=== PATIENT | male | born 1945 | race Caucasian/White ===

== ENCOUNTER 2016-08-27 13:53 | Emergency (ER) | payer OTHER ==
[~2016-08-27] VITALS: Ht 175.3 cm; Wt 50.0 kg
[~2016-08-27 13:53] MED LIST: ARIC23TA PO; ENAL10TA7 PO; ZOFR4TAB3 SL
[2016-08-27 13:57] VITALS: BP 145/65; PULSE 80; RESP 16; TEMP 98.5; O2SAT 98
[2016-08-27] MEDS ORDERED: ENAL10TA PO (14:27)
[2016-08-27] MEDS ORDERED: MIRTA15 PO (14:27)
[2016-08-27] MEDS ORDERED: MEMA1CAP4 PO (14:27)
[2016-08-27] MEDS ORDERED: LOVA40TA PO (14:27)
[2016-08-27] MEDS ORDERED: ASPI81TA11 PO (14:27)
--- NOTE | 2016-08-27 14:27 | PD ---
HPI Chief Complaint: Fall Time Seen by Provider: 14:09 Travel History International Travel<30 days: No Contact w/Intl Traveler<30days: No Traveled to known affect area: No History of Present Illness HPI 70-year-old man, history of dementia, presents to the emergency department after fall. Reportedly at about 3 AM last night he had a fall in the shower. He complains of pain on the right side of his chest. He had some bruising on his left arm. He lives with an uncle who helps take care of him. They called his brother today brought into the emergency department. History Past Medical History Narrative Medical Dementia Hypertension History of pancreatitis Tetanus Vaccination: Unknown Social History Alcohol Use: No Tobacco Use: No Allergies-Medications (Allergen,Severity, Reaction): Coded Allergies: Penicillin (Verified Allergy, Mild, RASH, 08/27/16) Reported Meds & Prescriptions Reported Meds & Active Scripts Active Reported Aspirin EC (Aspirin) 81 Mg Tabdr 81 Mg PO DAILY Namzaric (Memantine-Donepezil) 21-10 mg Cap 1 Cap PO HS Mirtazapine 15 Mg Tab 15 Mg PO HS Lovastatin 40 Mg Tab 40 Mg PO DAILY Enalapril (Enalapril Maleate) 10 Mg Tab 10 Mg PO DAILY Review of Systems Except as stated in HPI: all other systems reviewed are Neg Physical Exam Narrative GENERAL: Well-appearing 70-year-old man, no acute distress. SKIN: Focused skin assessment warm/dry. HEAD: Atraumatic. Normocephalic. EYES: Pupils equal and round. No scleral icterus. No injection or drainage. ENT: No nasal bleeding or discharge. Mucous membranes pink and moist. NECK: Moves neck freely. No apparent tenderness. CARDIOVASCULAR: Regular rate and rhythm. No murmur appreciated. RESPIRATORY: No accessory muscle use. Clear to auscultation. Breath sounds equal bilaterally. GASTROINTESTINAL: Abdomen soft, non-tender, nondistended. Hepatic and splenic margins not palpable. MUSCULOSKELETAL: No obvious deformities. Little bit of residual left arm. Pain with palpation the right chest wall. No point tenderness. No crepitus. NEUROLOGICAL: Awake and alert. Confusion. No obvious cranial nerve deficits. Motor grossly within normal limits. Normal speech. Data Data Last Documented VS Vital Signs Date Time Temp Pulse Resp B/P Pulse Ox O2 Delivery O2 Flow Rate FiO2 08/27/16 15:22 70 18 155/66 98 Room Air 08/27/16 13:57 98.5 Orders Chest, Single Ap (08/27/16 ) Ct Brain W/O Iv Contrast(Rout) (08/27/16 ) [facility] Medical Decision Making Medical Screen Exam Complete: Yes Emergency Medical Condition: Yes Interpretation(s) Chest x-ray: Negative CT head: Negative. Complete opacification of the right maxillary sinus. Differential Diagnosis Rib fracture, chest wall contusion, head injury, other Narrative Course Medical decision making 70-year-old with history of dementia presents after a fall. He has right chest wall tenderness suggestive of contusion or rib fracture. We'll check CT head, chest x-ray, reassess. Diagnosis Primary Impression: Chest wall pain Additional Instructions: Take Tylenol or Motrin as needed for pain. Follow-up with her primary doctor in the next 2-4 days. Return to the emergency department for any new or worsening symptoms. Med/Other Pt SpecificInfo: No Change to Meds Disposition: 01 DISCHARGE HOME Condition: Stable Ivan Amin MD Aug 27, 2016 14:26
--- NOTE | 2016-08-27 14:52 | RADHPO ---
EXAM DATE/TIME: 08/27/2016 14:38 [facility] COMPARISON: No previous studies available for comparison. INDICATIONS : Chest pain, fell this am. MEDICAL HISTORY : Hypertension. Cardiovascular disease. duodonitis SURGICAL HISTORY : None. ENCOUNTER: Initial ACUITY: 1 day PAIN SCORE: 8/10 LOCATION: Bilateral upper chest FINDINGS: A single view of the chest demonstrates the lungs to be symmetrically aerated without evidence of mas s, infiltrate or effusion. The cardiomediastinal contours are unremarkable. Osseous structures are intact. CONCLUSION: No acute disease. Warner Canales MD FACR on August 27, 2016 at 14:50 Board Certified Radiologist. This report was verified electronically.
[2016-08-27 15:22] VITALS: BP 155/66; PULSE 70; RESP 18; O2SAT 98
--- NOTE | 2016-08-27 15:27 | RADHPO ---
EXAM DATE/TIME: 08/27/2016 14:53 [facility] COMPARISON: CT ABDOMEN & PELVIS W/O CONTRAST, December 24, 2015, 19:45. INDICATIONS : Fell this morning. RADIATION DOSE: 46.89 CTDIvol (mGy) MEDICAL HISTORY : Cerebrovascular disease. Hypertension. SURGICAL HISTORY : None. ENCOUNTER: Initial ACUITY: 1 day PAIN SCALE: 0/10 LOCATION: cranial TECHNIQUE: Multiple contiguous axial images were obtained of the head. Using automated exposure control and adj ustment of the mA and/or kV according to patient size, radiation dose was kept as low as reasonably a chievable to obtain optimal diagnostic quality images. FINDINGS: The examination demonstrates fairly diffuse microvascular ischemic demyelinative change changes. There is no acute intra-cranial hemorrhage. No mass lesion is identified. There is an old lacunar inf arct in the right insular cortex. The sulci and gyri are otherwise intact. No abnormal extra-axial fl uid collections are seen. The appearance of the posterior fossa is unremarkable. The osseous structures of the skull are intact. There is complete opacification of the right maxillar y sinus. CONCLUSION: 1. Advanced microvascular ischemic demyelinative change. 2. Complete opacification of the right maxillary sinus. Aric Canales MD on August 27, 2016 at 15:20 Board Certified Radiologist. This report was verified electronically.
== END 2016-08-27 15:48 | disposition home or self-care (01) ==
LOC: PHED 13:53
DX: R07.89 Other chest pain (principal); S40.022A Contusion of left upper arm, initial encounter; F03.90 Unspecified dementia, unspecified severity, without behavioral disturbance, psychotic disturbance, mood disturbance, and anxiety; I10 Essential (primary) hypertension; W19.XXXA Unspecified fall, initial encounter; Y93.E1 Activity, personal bathing and showering; Y92.091 Bathroom in other non-institutional residence as the place of occurrence of the external cause; Y99.8 Other external cause status
CPT/HCPCS: 70450; 71010; 99284

== ENCOUNTER 2017-09-19 09:32 | Observation (INO) ==
[2017-09-19 10:34] LABS: Eos # (Auto) 0.1 th/mm3 (0.0-0.4); Eos % (Auto) 3.8 % (0.0-4.0); Hemoglobin 14.8 gm/dL (13.0-17.0); Lymph # (Auto) 0.9 th/mm3 (1.0-4.8); Lymph % (Auto) 23.5 % (9.0-44.0); Mean Corpuscular HGB Conc 34.5 % (32.0-36.0); Mean Corpuscular Hemoglobin 31.3 pg (27.0-34.0); Mean Corpuscular Volume 90.7 fL (80.0-100.0); Mean Platelet Volume 7.5 fL (7.0-11.0); Mono # (Auto) 0.3 th/mm3 (0.0-0.9); Mono % (Auto) 7.6 % (0.0-8.0); Neut # (Auto) 2.5 th/mm3 (1.8-7.7); Neut % (Auto) 64.1 % (16.0-70.0); Platelet Count 171 th/mm3 (150-450); Red Blood Count 4.74 mil/mm3 (4.50-5.90); Red Cell Distribution Width 13.5 % (11.6-17.2); White Blood Count 3.8 th/mm3 (4.0-11.0)
[2017-09-19 10:51] LABS: Chloride 106 meq/L (98-107); Sodium 144 meq/L (136-145)
[2017-09-19 10:55] LABS: Activated Partial Thrombo Time 24.9 sec (24.3-30.1); Albumin 3.9 g/dL (3.4-5.0); Anion Gap 6 meq/L (5-15); Blood Urea Nitrogen 15 mg/dL (7-18); Carbon Dioxide 32.2 meq/L (21.0-32.0); Glucose,Random 111 mg/dL (74-106); INR 1.1 Ratio; Prothrombin Time 11.6 sec (9.8-11.6)
--- NOTE | 2017-09-19 10:55 | XR ---
EXAM DATE: 09/19/2017 10:38 AM EDT AGE/SEX: 71 years / Male INDICATIONS: Congestion. CLINICAL DATA: This is the patient's initial encounter. Patient reports that signs and symptoms have been present for 1 day and indicates a pain score of Nonresponsive. MEDICAL/SURGICAL HISTORY: Hypertension. None. COMPARISON: [facility], CHEST SINGLE AP, 08/27/2016. . FINDINGS: Lungs are hyperinflated. There is no evidence of acute airspace disease, mass densities or effusions. Heart is normal in size. Mediastinal structures are stable. Osseous structures are intact. CONCLUSION: 1. Hyperinflated lungs characteristic of COPD. 2. No evidence of acute cardiopulmonary process. 3. Stable chest Electronically signed by: Marko Michelle MD 09/19/2017 10:53 AM EDT
[2017-09-19 10:58] LABS: Alanine Aminotransferase 25 U/L (12-78); Aspartate Aminotransferase 18 U/L (15-37); Glomerular Filtration Rate 60 mL/min (>89)
[2017-09-19 11:01] LABS: Alkaline Phosphatase 48 U/L (45-117)
--- NOTE | 2017-09-19 12:09 | ED ---
HPI General Chief complaint: Altered Mental Status Stated complaint: Evac/Increased AMS Time Seen by Provider: 09/19/17 09:59 History of Present Illness HPI narrative: 72-year-old male history of dementia here for evaluation of altered mental status and generalized weakness. Patient was brought by [facility], he lives with his uncle who called the ambulance for him because patient has not been responding to him as he usually does, is becoming weak and does not do his regular daily activities. Patient here in the ER not give any history, unable to get any information about his condition. Family arrived at the ER, his brother states that patient has been having low appetite for the last 2 years, has been losing weight, refusing to eat, refusing to walk around and do his daily activities, his PMD started him on mirtazapine 7.5 mg 3 days ago and since then patient has not been responding to his brother as he usually does. For the last 3 days, patient does not get out of bed, refuses to eat, lethargic, not responding to his family members, not engaged on his usual daily activities. Related Data Home Medications Medication Instructions Recorded Confirmed aspirin [Aspir-81] 81 mg PO DAILY 09/19/17 09/19/17 enalapril maleate 10 mg PO DAILY 09/19/17 09/19/17 lovastatin 1 tab PO DAILY 09/19/17 09/19/17 memantine-donepezil [Namzaric] 1 tab PO DAILY 09/19/17 09/19/17 mirtazapine 7.5 mg PO DAILY 09/19/17 09/19/17 tamsulosin 0.4 mg PO DAILY 09/19/17 09/19/17 Allergies Allergy/AdvReac Type Severity Reaction Status Date / Time penicillin G Allergy Mild RASH Verified 09/19/17 15:59 Review of Systems Except as stated in HPI: all other systems reviewed are negative [facility] Social History Social History Substance History: No History of Abuse Second Hand Smoke Exposure: No Smoking Status: Never smoker How Often Do You Have a Drink Containing Alcohol: Never Recent Travel in [facility] within the Last 8 Weeks: No Recent Out of Country Travel within the Last 8 Weeks: No Immunization History Tetanus Immunization: Unsure Hx Influenza Vaccine This Season: Yes Exam Narrative Exam Narrative: GENERAL: Alert oriented 3 no acute distress. SKIN: Focused skin assessment warm/dry. HEAD: Atraumatic. Normocephalic. EYES: Pupils equal and round. No scleral icterus. No injection or drainage. ENT: No nasal bleeding or discharge. Mucous membranes pink and moist. NECK: Trachea midline. No JVD. CARDIOVASCULAR: Regular rate and rhythm. No murmur appreciated. RESPIRATORY: No accessory muscle use. Clear to auscultation. Breath sounds equal bilaterally. GASTROINTESTINAL: Abdomen soft, non-tender, nondistended. Hepatic and splenic margins not palpable. MUSCULOSKELETAL: No obvious deformities. No clubbing. No cyanosis. No edema. NEUROLOGICAL: Awake and alert. No obvious cranial nerve deficits. Motor grossly within normal limits. Normal speech. PSYCHIATRIC: Appropriate mood and affect; insight and judgment normal. Course Initial Documented Vital Signs Temperature 97.6 F 09/19/17 09:45 Pulse Rate 64 09/19/17 09:45 Respiratory Rate 16 09/19/17 09:45 Blood Pressure 147/67 H 09/19/17 09:45 Pulse Oximetry 98 09/19/17 09:45 Last Documented Vital Signs Temperature 97.9 F 09/23/17 08:00 Pulse Rate 68 09/23/17 08:00 Respiratory Rate 18 09/23/17 08:00 Blood Pressure 132/83 09/23/17 08:00 Pulse Oximetry 98 09/23/17 08:00 Medical Decision Making [facility] Narrative Medical decision making narrative: 71-year-old male of altered mental status, generalized weakness. Labs are within normal its, vitals are remarkable for mild bradycardia but patient has no symptoms, labs reasonably within normal limits, CAT scan of the head shows atrophy but no acute intracranial abnormalities, urinalysis shows bacteria and white blood cells clumps with some epithelium which could be contaminant. I will admit the patient for further evaluation of altered mental status and generalized weakness. Patient may need fpc placement given his clinical status. Lab Data Result diagrams: 09/20/17 04:45 09/20/17 04:55 Lab Results 09/19/17 09/19/17 09/19/17 Range/Units 10:10 10:10 10:10 CBC w Diff Auto diff final WBC 3.8 L (4.0-11.0) th/mm3 RBC 4.74 (4.50-5.90) mil/mm3 Hgb 14.8 (13.0-17.0) gm/dL Hct 43.0 (39.0-51.0) % MCV 90.7 (80.0-100.0) fL MCH 31.3 (27.0-34.0) pg MCHC 34.5 (32.0-36.0) % RDW 13.5 (11.6-17.2) % Plt Count 171 (150-450) th/mm3 MPV 7.5 (7.0-11.0) fL Neut % (Auto) 64.1 (16.0-70.0) % Lymph % (Auto) 23.5 (9.0-44.0) % [place] % (Auto) 7.6 (0.0-8.0) % Eos % (Auto) 3.8 (0.0-4.0) % Baso % (Auto) 1.0 (0.0-2.0) % Neut # (Auto) 2.5 (1.8-7.7) th/mm3 Lymph # (Auto) 0.9 L (1.0-4.8) th/mm3 [place] # (Auto) 0.3 (0.0-0.9) th/mm3 Eos # (Auto) 0.1 (0.0-0.4) th/mm3 Baso # (Auto) 0.0 (0.0-0.2) th/mm3 WBC Differential . Differential Comment . PT 11.6 (9.8-11.6) sec INR 1.1 Ratio APTT 24.9 (24.3-30.1) sec Sodium 144 (136-145) meq/L Potassium 4.0 (3.5-5.1) meq/L Chloride 106 (98-107) meq/L Carbon Dioxide 32.2 H (21.0-32.0) meq/L Anion Gap 6 (5-15) meq/L BUN 15 (7-18) mg/dL Creatinine 1.20 (0.60-1.30) mg/dL Estimated GFR 60 L (>89) mL/min Random Glucose 111 H (74-106) mg/dL Calcium 9.0 (8.5-10.1) mg/dL Total Bilirubin 1.8 H (0.2-1.0) mg/dL AST 18 (15-37) U/L ALT 25 (12-78) U/L Alkaline Phosphatase 48 (45-117) U/L Ammonia (11-32) mcmol/L Troponin I Less than 0.02 L (0.02-0.05) ng/mL Total Protein 7.0 (6.4-8.2) g/dL Albumin 3.9 (3.4-5.0) g/dL TSH 2.300 (0.358-3.740) uIU/mL Urine Color (Yellw/Straw) Urine Clarity (Clear) Urine pH (5.0-8.5) Ur Specific [place] (1.002-1.035) Urine Protein (Neg-Trace) mg/dL Urine Glucose (UA) (Negative) mg/dL Urine Ketones (Negative) mg/dL Urine Occult Blood (Negative) Urine Nitrate (Negative) Urine Bilirubin (Negative) Urine Urobilinogen (Less than 2) mg/dL Ur Leukocyte Esterase (Negative) Urine RBC (0-3) /hpf Urine WBC (0-5) /hpf Urine WBC Clumps (None) Ur Squamous Epith Cells (0-5) /hpf Ur Transition Epith Cell (None) /hpf Amorphous Sediment (None) /hpf Urine Bacteria (None) /hpf Urine Mucus (Occasional) /lpf Micro UA Comment Urine Culture Comments Urine Opiates Screen (Neg) Ur Barbiturates Screen (Neg) Ur Amphetamines Screen (Neg) U Benzodiazepines Scrn (Neg) Urine Cocaine Screen (Neg) U Cannabinoids Screen (Neg) Serum Alcohol Less than 3 (0-5) mg/dL 09/19/17 09/19/17 09/19/17 Range/Units 10:10 12:00 12:00 CBC w Diff WBC (4.0-11.0) th/mm3 RBC (4.50-5.90) mil/mm3 Hgb (13.0-17.0) gm/dL Hct (39.0-51.0) % MCV (80.0-100.0) fL MCH (27.0-34.0) pg MCHC (32.0-36.0) % RDW (11.6-17.2) % Plt Count (150-450) th/mm3 MPV (7.0-11.0) fL Neut % (Auto) (16.0-70.0) % Lymph % (Auto) (9.0-44.0) % [place] % (Auto) (0.0-8.0) % Eos % (Auto) (0.0-4.0) % Baso % (Auto) (0.0-2.0) % Neut # (Auto) (1.8-7.7) th/mm3 Lymph # (Auto) (1.0-4.8) th/mm3 [place] # (Auto) (0.0-0.9) th/mm3 Eos # (Auto) (0.0-0.4) th/mm3 Baso # (Auto) (0.0-0.2) th/mm3 WBC Differential Differential Comment PT (9.8-11.6) sec INR Ratio APTT (24.3-30.1) sec Sodium (136-145) meq/L Potassium (3.5-5.1) meq/L Chloride (98-107) meq/L Carbon Dioxide (21.0-32.0) meq/L Anion Gap (5-15) meq/L BUN (7-18) mg/dL Creatinine (0.60-1.30) mg/dL Estimated GFR (>89) mL/min Random Glucose (74-106) mg/dL Calcium (8.5-10.1) mg/dL Total Bilirubin (0.2-1.0) mg/dL AST (15-37) U/L ALT (12-78) U/L Alkaline Phosphatase (45-117) U/L Ammonia 12 (11-32) mcmol/L Troponin I (0.02-0.05) ng/mL Total Protein (6.4-8.2) g/dL Albumin (3.4-5.0) g/dL TSH (0.358-3.740) uIU/mL Urine Color Yellow (Yellw/Straw) Urine Clarity Clear (Clear) Urine pH 7.0 (5.0-8.5) Ur Specific [place] 1.015 (1.002-1.035) Urine Protein Trace (Neg-Trace) mg/dL Urine Glucose (UA) Negative (Negative) mg/dL Urine Ketones Negative (Negative) mg/dL Urine Occult Blood Negative (Negative) Urine Nitrate Negative (Negative) Urine Bilirubin Negative (Negative) Urine Urobilinogen 1.0 (Less than 2) mg/dL Ur Leukocyte Esterase Negative (Negative) Urine RBC 0-3 (0-3) /hpf Urine WBC 9-20 H (0-5) /hpf Urine WBC Clumps Occasional H (None) Ur Squamous Epith Cells 0-5 (0-5) /hpf Ur Transition Epith Cell 1-5 H (None) /hpf Amorphous Sediment Occ H (None) /hpf Urine Bacteria Occasional H (None) /hpf Urine Mucus Few H (Occasional) /lpf Micro UA Comment Culture indicated Urine Culture Comments Culture indicated Urine Opiates Screen Neg (Neg) Ur Barbiturates Screen Neg (Neg) Ur Amphetamines Screen Neg (Neg) U Benzodiazepines Scrn Neg (Neg) Urine Cocaine Screen Neg (Neg) U Cannabinoids Screen Neg (Neg) Serum Alcohol (0-5) mg/dL 09/20/17 09/20/17 Range/Units 04:45 04:55 CBC w Diff Auto diff final WBC 4.5 (4.0-11.0) th/mm3 RBC 4.74 (4.50-5.90) mil/mm3 Hgb 15.0 (13.0-17.0) gm/dL Hct 43.6 (39.0-51.0) % MCV 92.0 (80.0-100.0) fL MCH 31.6 (27.0-34.0) pg MCHC 34.4 (32.0-36.0) % RDW 13.0 (11.6-17.2) % Plt Count 159 (150-450) th/mm3 MPV 8.7 (7.0-11.0) fL Neut % (Auto) 59.2 (16.0-70.0) % Lymph % (Auto) 26.5 (9.0-44.0) % [place] % (Auto) 8.5 H (0.0-8.0) % Eos % (Auto) 4.8 H (0.0-4.0) % Baso % (Auto) 1.0 (0.0-2.0) % Neut # (Auto) 2.7 (1.8-7.7) th/mm3 Lymph # (Auto) 1.2 (1.0-4.8) th/mm3 [place] # (Auto) 0.4 (0.0-0.9) th/mm3 Eos # (Auto) 0.2 (0.0-0.4) th/mm3 Baso # (Auto) 0.0 (0.0-0.2) th/mm3 WBC Differential . Differential Comment . PT (9.8-11.6) sec INR Ratio APTT (24.3-30.1) sec Sodium 144 (136-145) meq/L Potassium 3.9 (3.5-5.1) meq/L Chloride 106 (98-107) meq/L Carbon Dioxide 31.4 (21.0-32.0) meq/L Anion Gap 7 (5-15) meq/L BUN 16 (7-18) mg/dL Creatinine 0.98 (0.60-1.30) mg/dL Estimated GFR 75 L (>89) mL/min Random Glucose 97 (74-106) mg/dL Calcium 9.3 (8.5-10.1) mg/dL Total Bilirubin (0.2-1.0) mg/dL AST (15-37) U/L ALT (12-78) U/L Alkaline Phosphatase (45-117) U/L Ammonia (11-32) mcmol/L Troponin I (0.02-0.05) ng/mL Total Protein (6.4-8.2) g/dL Albumin (3.4-5.0) g/dL TSH (0.358-3.740) uIU/mL Urine Color (Yellw/Straw) Urine Clarity (Clear) Urine pH (5.0-8.5) Ur Specific [place] (1.002-1.035) Urine Protein (Neg-Trace) mg/dL Urine Glucose (UA) (Negative) mg/dL Urine Ketones (Negative) mg/dL Urine Occult Blood (Negative) Urine Nitrate (Negative) Urine Bilirubin (Negative) Urine Urobilinogen (Less than 2) mg/dL Ur Leukocyte Esterase (Negative) Urine RBC (0-3) /hpf Urine WBC (0-5) /hpf Urine WBC Clumps (None) Ur Squamous Epith Cells (0-5) /hpf Ur Transition Epith Cell (None) /hpf Amorphous Sediment (None) /hpf Urine Bacteria (None) /hpf Urine Mucus (Occasional) /lpf Micro UA Comment Urine Culture Comments Urine Opiates Screen (Neg) Ur Barbiturates Screen (Neg) Ur Amphetamines Screen (Neg) U Benzodiazepines Scrn (Neg) Urine Cocaine Screen (Neg) U Cannabinoids Screen (Neg) Serum Alcohol (0-5) mg/dL Imaging Data Radiologist's impression: Chest X-Ray 09/19/17 10:07 CONCLUSION: 1. Hyperinflated lungs characteristic of COPD. 2. No evidence of acute cardiopulmonary process. 3. Stable chest Head CT 09/19/17 11:32 CONCLUSION: 1. No focal or acute intracranial hemorrhage. 2. Diffuse bilateral cortical atrophy and prominent bilateral chronic white matter changes. 3. Visualized portion of the right maxillary sinus is opacified. Discharge Plan Discharge Disposition Patient Disposition: 30 Still Patient Discharge Condition Condition: Stable Discharge Order Discharge Orders: Discharge Order (Routine); Ordered 09/22/17 Ordered By: Corinne Tripp Discharge Details Anticipated Discharge Date: 09/22/17 Discharge Comment: when arrangements made Physicians Team ED Provider: Eagle Jimenez Primary Care Provider: Steffen Sheth V Attending Provider: Corinne Tripp Other Providers: Vadim Mendez ; [employer] Discharge Interventions Interventions: ED Discharge Assessment Last Done: 09/19/17 14:15 Status ED Status: Left Department Discharge Information Discharge Date/Time: 09/19/17 14:20
[2017-09-19 12:16] LABS: Bilirubin,Urine Negative (Negative); Clarity,Urine Clear (Clear); Color,Urine Yellow (Yellw/Straw); Glucose,Urine (UA) Negative (Negative); Leukocyte Esterase,Urine Negative (Negative); Nitrite,Urine Negative (Negative); Specific Gravity,Urine 1.015 (1.002-1.035)
[2017-09-19 12:27] LABS: Amphetamine Screen,Urine Neg (Neg); Cannabinoid Screen,Urine Neg (Neg); Cocaine Screen,Urine Neg (Neg)
[2017-09-19 12:31] LABS: Opiate Screen,Urine Neg (Neg); RBC,Urine 0-3 /hpf (0-3)
[2017-09-19 12:32] LABS: Amorphous Sediment,Urine Occ /hpf; Bacteria,Urine Occasional /hpf; Mucus,Urine Few /lpf (Occasional); Squamous Epithelial Cell,Urine 0-5 /hpf (0-5)
[2017-09-19 12:34] LABS: Barbiturate Screen,Urine Neg (Neg)
--- NOTE | 2017-09-19 12:37 | CT ---
EXAM DATE: 09/19/2017 12:22 PM EDT AGE/SEX: 71 years / Male INDICATIONS: Increased altered mental status. CLINICAL DATA: This is the patient's initial encounter. Patient reports that signs and symptoms have been present for 1 day and indicates a pain score of 0/10. MEDICAL/SURGICAL HISTORY: Stroke. Hypertension. Dementia. None. RADIATION DOSE: 49.71 CTDI (mGy) COMPARISON: No prior exams available for comparison. TECHNIQUE: CT of the head without contrast. Using automated exposure control and adjustment of the mA and/or kV according to patient size, radiation dose was kept as low as reasonably achievable to ob tain optimal diagnostic quality images. DICOM format image data is available electronically for revi ew and comparison. FINDINGS: Cerebrum: The ventricles are upper limits of normal for age. There is diffuse bilateral cortical atr ophy. There is prominent chronic appearing white matter changes bilaterally. These findings were desc ribed on a previous CT brain from 2017. No evidence of midline shift, mass lesion, hemorrhage or acu te infarction. No extraaxial fluid collections are seen. Posterior Fossa: The cerebellum and brainstem are intact. The 4th ventricle is midline. The cerebe llopontine angle is unremarkable. Extracranial: The visualized portion of the orbits is intact. There is complete opacification of the visualized portion of the right maxillary sinus. This was also previously described in 2017. Skull: The calvaria is intact. No evidence of skull fracture. CONCLUSION: 1. No focal or acute intracranial hemorrhage. 2. Diffuse bilateral cortical atrophy and prominent bilateral chronic white matter changes. 3. Visualized portion of the right maxillary sinus is opacified. Electronically signed by: Faheem Becerril MD 09/19/2017 12:35 PM EDT
[2017-09-19] MEDS ORDERED: Acetaminophen 325 MG Tablet PO PRN (13:04)
[2017-09-19] MEDS ORDERED: Bisacodyl 10 MG Supp RECTAL PRN (13:04)
--- NOTE | 2017-09-19 14:00 | P.HPIM ---
History of Present Illness Primary Care Physician: Steffen Sheth MD Chief Complaint: Weakness and confusion History of Present Illness: Patient is a 71-year-old gentleman with a history of dementia is rather advanced who comes in with increased weakness and confusion. Family is unavailable at this time. I did call them and did not receive a response from family members. There is evidence of urinary tract infection in the emergency room analysis. Images of the brain are unremarkable for acute findings but did show cortical atrophy consistent with dementia. Patient is recommended for further evaluation due to change in mental status. Further information to follow - Diagnosis (1) Metabolic encephalopathy (2) Dementia (3) BPH (benign prostatic hyperplasia) (4) HTN (hypertension) Review of Systems All other systems reviewed negative except as stated in HPI Constitutional: Reports weakness Neurologic: Reports abnormal speech PMFSH - History History Provided By: Family Member - Medical History Medical History: Medical History (Last Updated 09/19/17 @ 11:23 by Radha Dobson) BPH (benign prostatic hyperplasia) CVA (cerebral vascular accident) Dementia High cholesterol Hypertension - Surgical History Surgical History: Surgical History (Last Updated 09/19/17 @ 11:23 by Radha Dobson) Hx of tonsillectomy - Tobacco History Second Hand Smoke Exposure: No Tobacco Use In Past 30 Days: No Smoking Status: Never smoker - Alcohol History How Often Do You Have a Drink Containing Alcohol: Never - Substance Use History Substance History: No History of Abuse - Travel History Recent Travel in the [place] Within the Last 8 Weeks: No Recent Travel Out of the Country Within the Last 8 Weeks: No - Immunization History Tetanus Immunization: Unsure Hx Influenza Vaccine This Season: Yes Medications and Allergies Active Medications: Active Medications Acetaminophen (Tylenol) 650 mg PO Q4H PRN PRN Reason: Temp > 100.4 Al Hydroxide/Mg Hydroxide (Milk Of Magnesia Liq) 30 ml PO Q12H PRN PRN Reason: Mild Constipation Bisacodyl (Dulcolax Supp) 10 mg RECTAL DAILY PRN PRN Reason: SEVERE CONSITIPATION Heparin Sodium (Porcine) (Heparin Inj) 5,000 units SQ Q12HR ZEYAD Lactulose (Lactulose Liq) 30 ml PO DAILY PRN PRN Reason: SEVERE CONSITIPATION Ondansetron HCl (Zofran Inj) 4 mg IV.PUSH Q6H PRN PRN Reason: NAUSEA OR VOMITING Senna/Docusate Sodium (Viry-Colace) 1 tab PO BID ZEYAD Sennosides (Senokot) 17.2 mg PO Q12H PRN PRN Reason: Moderate Constipation Sodium Chloride (Ns Flush) 2 ml IV.FLUSH BID ZEYAD Sodium Chloride (Ns Flush) 2 ml IV.FLUSH PRN PRN PRN Reason: FLUSH AFTER USING IV ACCESS Temazepam (Restoril) 15 mg PO HS PRN PRN Reason: INSOMNIA Allergies Allergy/AdvReac Type Severity Reaction Status Date / Time penicillin G Allergy Mild RASH Verified 09/19/17 10:12 Home Medications Medication Instructions Recorded Confirmed Type aspirin [Aspir-81] 81 mg PO DAILY 09/19/17 09/19/17 History enalapril maleate 10 mg PO DAILY 09/19/17 09/19/17 History lovastatin 1 tab PO DAILY 09/19/17 09/19/17 History memantine-donepezil [Namzaric] 1 tab PO DAILY 09/19/17 09/19/17 History mirtazapine 7.5 mg PO DAILY 09/19/17 09/19/17 History tamsulosin 0.4 mg PO DAILY 09/19/17 09/19/17 History Exam Vital signs: Vital Signs 09/19/17 09:45 09/19/17 10:29 09/19/17 11:17 Temperature 97.6 F 97.6 F Pulse Rate 64 64 48 L Respiratory Rate 16 16 Blood Pressure 147/67 H 147/67 H 151/64 H Pulse Oximetry 98 98 98 Narrative: GENERAL: Patient calm resting and without complaints SKIN: Warm and dry. No rashes or ecchymotic injuries EYES: Pupils equal and round. No scleral icterus. No injection or drainage. ENT: External ear exam normal. No acute nasal bleeding or discharge. Mucous membranes pink and moist. CARDIOVASCULAR: Regular rate and rhythm. No murmurs gallops or rubs appreciated RESPIRATORY: Good air flow and effort without accessory muscle use. Clear to auscultation. Breath sounds equal bilaterally. GASTROINTESTINAL: Abdomen soft, non-tender, nondistended. Hepatic and splenic margins not palpable. MUSCULOSKELETAL: Cachectic pale male with extremities without clubbing, cyanosis , or edema. No obvious deformities. NEUROLOGICAL: Awake and alert. No obvious cranial nerve deficits. Motor grossly within normal limits. Five out of 5 muscle strength in the arms and legs. Inconsistently slurred speech, follows commands Results - Labs CBC & Chem 7: 09/19/17 10:10 09/19/17 10:10 Labs: Short CBC 09/19/17 Range/Units 10:10 WBC 3.8 L (4.0-11.0) th/mm3 Hgb 14.8 (13.0-17.0) gm/dL Hct 43.0 (39.0-51.0) % Plt Count 171 (150-450) th/mm3 BMP 09/19/17 10:10 Sodium 144 Potassium 4.0 Chloride 106 Carbon Dioxide 32.2 H BUN 15 Creatinine 1.20 Calcium 9.0 Cardiac Enzymes 09/19/17 Range/Units 10:10 Troponin I Less than 0.02 L (0.02-0.05) ng/mL Liver Function 09/19/17 Range/Units 10:10 Total Bilirubin 1.8 H (0.2-1.0) mg/dL AST 18 (15-37) U/L ALT 25 (12-78) U/L Alkaline Phosphatase 48 (45-117) U/L Albumin 3.9 (3.4-5.0) g/dL Urine 09/19/17 Range/Units 12:00 Urine Color Yellow (Yellw/Straw) Urine Clarity Clear (Clear) Urine pH 7.0 (5.0-8.5) Ur Specific [place] 1.015 (1.002-1.035) Urine Protein Trace (Neg-Trace) mg/dL Urine Glucose (UA) Negative (Negative) mg/dL - Imaging Impressions Chest X-Ray 09/19/17 10:07 CONCLUSION: 1. Hyperinflated lungs characteristic of COPD. 2. No evidence of acute cardiopulmonary process. 3. Stable chest Head CT 09/19/17 11:32 CONCLUSION: 1. No focal or acute intracranial hemorrhage. 2. Diffuse bilateral cortical atrophy and prominent bilateral chronic white matter changes. 3. Visualized portion of the right maxillary sinus is opacified. Caprini VTE Risk Assessment Caprini VTE Risk Assessment: Moderate/High Risk (score >= 2) Caprini Risk Assessment Model: Point Value = 1 Point Value = 2 Point Value = 3 Point Value = 5 Age 41-60 Minor surgery BMI > 25 kg/m2 Swollen legs Varicose veins or History of unexplained or recurrent spontaneous Oral contraceptives or hormone replacement Sepsis (< 1 month) Serious lung disease, including pneumonia (< 1 month) Abnormal pulmonary function Acute myocardial infarction Congestive heart failure (< 1 month) History of inflammatory bowel disease Medical patient at bed rest Age 61-74 Arthroscopic surgery Major open surgery (> 45 min) Laparoscopic surgery (> 45 min) Malignancy Confined to bed (> 72 hours) Immobilizing plaster cast Central venous access Age >= 75 History of VTE Family history of VTE Factor V Leiden Prothrombin [id number] Lupus anticoagulant Anticardiolipin antibodies Elevated serum homocysteine Heparin-induced thrombocytopenia Other congenital or acquired thrombophilia Stroke (< 1 month) Elective arthroplasty Hip, pelvis, or leg fracture Acute spinal cord injury (< 1 month) Prophylaxis Regimen: Total Risk Factor Score Risk Level Prophylaxis Regimen 0-1 Low Early ambulation 2 Moderate Order ONE of the following: *Sequential Compression Device (SCD) *Heparin 5000 units SQ BID 3-4 Higher Order ONE of the following medications: *Heparin 5000 units SQ TID *Enoxaparin/Lovenox 40 mg SQ daily (WT < 150 kg, CrCl > 30 mL/min) *Enoxaparin/Lovenox 30 mg SQ daily (WT < 150 kg, CrCl > 10-29 mL/min) *Enoxaparin/Lovenox 30 mg SQ BID (WT < 150 kg, CrCl > 30 mL/min) AND/OR *Sequential Compression Device (SCD) 5 or more Highest Order ONE of the following medications: *Heparin 5000 units SQ TID (Preferred with Epidurals) *Enoxaparin/Lovenox 40 mg SQ daily (WT < 150 kg, CrCl > 30 mL/min) *Enoxaparin/Lovenox 30 mg SQ daily (WT < 150 kg, CrCl > 10-29 mL/min) *Enoxaparin/Lovenox 30 mg SQ BID (WT < 150 kg, CrCl > 30 mL/min) AND *Sequential Compression Device (SCD) Assessment and Plan - Assessment (1) Metabolic encephalopathy Code(s): G93.41 - Metabolic encephalopathy Status: Acute Plan: Etiology unclear, may be related to urinary tract infection, cultures pending Continue empiric levofloxacin Patient appears quite cachectic and will add dietitian consult for malnutrition Follow-up with speech and rehab services (2) Dementia Code(s): F03.90 - Unspecified dementia without behavioral disturbance Status: Acute Plan: Continue home medication (3) BPH (benign prostatic hyperplasia) Code(s): N40.0 - Benign prostatic hyperplasia without lower urinary tract symptoms Status: Acute Plan: cont flomax (4) HTN (hypertension) Code(s): I10 - Essential (primary) hypertension Status: Acute Plan: Controlled on enalapril
[2017-09-19] MEDS: Heparin - SQ 10,000 UNITS/ML Vial SQ SCH ×3 (14:38→23:03)
--- NOTE | 2017-09-19 16:25 | P.DIET ---
Nutritional Evaluation Type of nutrition evaluation: initial Nutrition consult regarding: Diet Evaluation Nutrition screening: [place] > 10 lbs, [facility] [facility] [place] [place]nutrition Subjective Barriers to Nutrition: Refuses to eat at times Subjective Comments: ED visit w/pt's family reports pt has been losing wt over the last 2-years. Three days prior to this admission, pt refusing to eat, does not get out of bed , lethargic, not responding to family members. Ht of 175.26cm, from previous ED visit w/an Actual HT, used for assessment here. A current Wt is not available. Objective - Diagnosis AMS, Dementia - Indications of Malnutrition Characteristics: Weight loss - Objective Body Weight Used for Calculations: IBW Energy Needs - Lower Range (kCal/kg): 25 Energy Needs - Upper Range (kCal/kg): 30 Lower Limit kCal/kg (kCals): 1,818 Upper Limit kCal/kg (kCals): 2,181 Lower Limit Protein Factor (Grams per Kg): 1.1 Upper Limit Protein Factor (Grams per Kg): 1.4 Lower Protein Needs (Protein): 80 Upper Protein Needs (Protein): 102 Fluid Factor (ml/kg): 30 Estimated Fluid Needs (ml): 2,181 Dietitian Reviewed in Medical Record: Current diet, Curent medications, Labs, Medical history Diet Order: Regular Objective Comments: PMH Includes: BPH, CVA, Dementia, high cholesterol, HTN Meds Include: Remeron, Zofran Feeding - Current PO Supplement Current Supplement: Ensure Enlive Current Frequency of Supplement: Three times a day Current kCals Provided by Supplement: 350 Current Protein Provided by Supplement: 20 Assessment Assessment: Pt is at high nutritional risk r/t refusal to have po intake and wt loss. Wt not available at time of this entry. H&P notes pt is "cachectic". Agree w/MD order for Ensure Enlive tid. Send Ensure Pudding w/meals(= 170 kcal and 4g Protein per serving). Monitor diet tolerance. Monitor supplement acceptance. Noted pt is receiving Remeron which may increase appetite. Dietitian following. Recommendations: 1. An Actual Wt is needed 2. Agree w/MD order for Ensure Enlive tid 3. Send Ensure Pudding w/meals 4. Monitor diet tolerance 5. Monitor supplement acceptance 6. Noted pt is receiving Remeron which may increase appetite 7. Dietitian following Dietitian to Monitor: Lab values, Electrolytes, Renal labs, Glucose level, Supplement acceptance, Intake & Output, Diet tolerance, Weight change, PO Intake , Medical course
[2017-09-19] MEDS: Temazepam 15 MG Capsule PO PRN (19:49)
[2017-09-19] MEDS: Senna/Docusate Sodium 8.6/50 MG Tablet PO SCH ×2 (19:49→23:03)
[2017-09-20] MEDS ORDERED: Mirtazapine 15 MG Tablet PO ONE (03:57)
[2017-09-20] MEDS ORDERED: ALPRAZolam 0.25 MG Tablet PO ONE (03:59)
[2017-09-20 06:19] LABS: Eos # (Auto) 0.2 th/mm3 (0.0-0.4); Eos % (Auto) 4.8 % (0.0-4.0); Hematocrit 43.6 % (39.0-51.0); Lymph # (Auto) 1.2 th/mm3 (1.0-4.8); Lymph % (Auto) 26.5 % (9.0-44.0); Mean Corpuscular HGB Conc 34.4 % (32.0-36.0); Mean Corpuscular Hemoglobin 31.6 pg (27.0-34.0); Mean Platelet Volume 8.7 fL (7.0-11.0); Mono # (Auto) 0.4 th/mm3 (0.0-0.9); Mono % (Auto) 8.5 % (0.0-8.0); Neut # (Auto) 2.7 th/mm3 (1.8-7.7); Neut % (Auto) 59.2 % (16.0-70.0); Platelet Count 159 th/mm3 (150-450); Red Blood Count 4.74 mil/mm3 (4.50-5.90); White Blood Count 4.5 th/mm3 (4.0-11.0)
[2017-09-20 06:23] LABS: Potassium 3.9 meq/L (3.5-5.1)
[2017-09-20 06:29] LABS: Calcium 9.3 mg/dL (8.5-10.1)
[2017-09-20 06:30] LABS: Carbon Dioxide 31.4 meq/L (21.0-32.0)
[2017-09-20] MEDS ORDERED: LOVASTATIN PO SCH (09:00)
[2017-09-20] MEDS ORDERED: MEMANTINE DONEPEZIL PO SCH (09:00)
--- NOTE | 2017-09-20 10:22 | P.PNIM ---
Subjective Interval history: Patient seen and evaluated in follow-up for advanced dementia and probable urinary tract no events overnight. Resting comfortably. Awaiting palliative consult Physical Exam Vital signs: Vital Signs 09/19/17 10:29 09/19/17 11:17 09/19/17 14:03 Temperature 97.6 F Pulse Rate 64 48 L 58 L Respiratory Rate 16 Blood Pressure 147/67 H 151/64 H 198/80 H Pulse Oximetry 98 98 20 L 09/19/17 17:24 09/19/17 20:00 09/20/17 00:00 Temperature 96.9 F L 96.8 F L 97.3 F L Pulse Rate 57 L 57 L 53 L Respiratory Rate 16 20 18 Blood Pressure 174/75 H 153/69 H 183/74 H Pulse Oximetry 100 94 L 98 09/20/17 04:00 09/20/17 08:00 Temperature 97.6 F Pulse Rate 61 51 L Respiratory Rate 17 Blood Pressure 159/74 H 157/75 H Pulse Oximetry 18 L 96 Intake & Output 09/19/17 09/20/17 09/20/17 18:59 06:59 18:59 Intake Total 150 / 150 60 / 60 Balance 150 / 150 60 / 60 Weight 45.9 kg Intake: IV 150 / 150 Levaquin 750 mg Premix Inj 150 150 / 150 ML @ 100 mls/hr IV.SIG Q24H ZEYAD Rx#:[id number] Oral 60 / 60 Other: # Voids 2 # Urine Diapers 2 # Bowel Movements 0 Weight On Admission 46 kg Narrative: GENERAL: Cachectic patient calm resting and without complaints SKIN: Warm and dry. No rashes or ecchymotic injuries EYES: Pupils equal and round. No scleral icterus. No injection or drainage. ENT: External ear exam normal. No acute nasal bleeding or discharge. Mucous membranes pink and moist. CARDIOVASCULAR: Regular rate and rhythm. No murmurs gallops or rubs appreciated RESPIRATORY: Good air flow and effort without accessory muscle use. Clear to auscultation. Breath sounds equal bilaterally. GASTROINTESTINAL: Abdomen soft, non-tender, nondistended. Hepatic and splenic margins not palpable. MUSCULOSKELETAL: Extremities without clubbing, cyanosis, or edema. No obvious deformities. NEUROLOGICAL: Awake and alert. No obvious cranial nerve deficits. Motor grossly within normal limits. Five out of 5 muscle strength in the arms and legs. Normal speech. Results - Labs CBC & Chem 7: 09/20/17 04:45 09/20/17 04:55 Laboratory Results - last 24 hr 09/19/17 09/19/17 09/19/17 10:10 10:10 10:10 CBC w Diff Auto diff final WBC 3.8 L RBC 4.74 Hgb 14.8 Hct 43.0 MCV 90.7 MCH 31.3 MCHC 34.5 RDW 13.5 Plt Count 171 MPV 7.5 Neut % (Auto) 64.1 Lymph % (Auto) 23.5 [place] % (Auto) 7.6 Eos % (Auto) 3.8 Baso % (Auto) 1.0 Neut # (Auto) 2.5 Lymph # (Auto) 0.9 L [place] # (Auto) 0.3 Eos # (Auto) 0.1 Baso # (Auto) 0.0 WBC Differential . Differential Comment . PT 11.6 INR 1.1 APTT 24.9 Sodium 144 Potassium 4.0 Chloride 106 Carbon Dioxide 32.2 H Anion Gap 6 BUN 15 Creatinine 1.20 Estimated GFR 60 L Random Glucose 111 H Calcium 9.0 Total Bilirubin 1.8 H AST 18 ALT 25 Alkaline Phosphatase 48 Ammonia Troponin I Less than 0.02 L Total Protein 7.0 Albumin 3.9 TSH 2.300 Urine Color Urine Clarity Urine pH Ur Specific [place] Urine Protein Urine Glucose (UA) Urine Ketones Urine Occult Blood Urine Nitrate Urine Bilirubin Urine Urobilinogen Ur Leukocyte Esterase Urine RBC Urine WBC Urine WBC Clumps Ur Squamous Epith Cells Ur Transition Epith Cell Amorphous Sediment Urine Bacteria Urine Mucus Micro UA Comment Urine Culture Comments Urine Opiates Screen Ur Barbiturates Screen Ur Amphetamines Screen U Benzodiazepines Scrn Urine Cocaine Screen U Cannabinoids Screen Serum Alcohol Less than 3 09/19/17 09/19/17 09/19/17 10:10 12:00 12:00 CBC w Diff WBC RBC Hgb Hct MCV MCH MCHC RDW Plt Count MPV Neut % (Auto) Lymph % (Auto) [place] % (Auto) Eos % (Auto) Baso % (Auto) Neut # (Auto) Lymph # (Auto) [place] # (Auto) Eos # (Auto) Baso # (Auto) WBC Differential Differential Comment PT INR APTT Sodium Potassium Chloride Carbon Dioxide Anion Gap BUN Creatinine Estimated GFR Random Glucose Calcium Total Bilirubin AST ALT Alkaline Phosphatase Ammonia 12 Troponin I Total Protein Albumin TSH Urine Color Yellow Urine Clarity Clear Urine pH 7.0 Ur Specific [place] 1.015 Urine Protein Trace Urine Glucose (UA) Negative Urine Ketones Negative Urine Occult Blood Negative Urine Nitrate Negative Urine Bilirubin Negative Urine Urobilinogen 1.0 Ur Leukocyte Esterase Negative Urine RBC 0-3 Urine WBC 9-20 H Urine WBC Clumps Occasional H Ur Squamous Epith Cells 0-5 Ur Transition Epith Cell 1-5 H Amorphous Sediment Occ H Urine Bacteria Occasional H Urine Mucus Few H Micro UA Comment Culture indicated Urine Culture Comments Culture indicated Urine Opiates Screen Neg Ur Barbiturates Screen Neg Ur Amphetamines Screen Neg U Benzodiazepines Scrn Neg Urine Cocaine Screen Neg U Cannabinoids Screen Neg Serum Alcohol 09/20/17 09/20/17 04:45 04:55 CBC w Diff Auto diff final WBC 4.5 RBC 4.74 Hgb 15.0 Hct 43.6 MCV 92.0 MCH 31.6 MCHC 34.4 RDW 13.0 Plt Count 159 MPV 8.7 Neut % (Auto) 59.2 Lymph % (Auto) 26.5 [place] % (Auto) 8.5 H Eos % (Auto) 4.8 H Baso % (Auto) 1.0 Neut # (Auto) 2.7 Lymph # (Auto) 1.2 [place] # (Auto) 0.4 Eos # (Auto) 0.2 Baso # (Auto) 0.0 WBC Differential . Differential Comment . PT INR APTT Sodium 144 Potassium 3.9 Chloride 106 Carbon Dioxide 31.4 Anion Gap 7 BUN 16 Creatinine 0.98 Estimated GFR 75 L Random Glucose 97 Calcium 9.3 Total Bilirubin AST ALT Alkaline Phosphatase Ammonia Troponin I Total Protein Albumin TSH Urine Color Urine Clarity Urine pH Ur Specific [place] Urine Protein Urine Glucose (UA) Urine Ketones Urine Occult Blood Urine Nitrate Urine Bilirubin Urine Urobilinogen Ur Leukocyte Esterase Urine RBC Urine WBC Urine WBC Clumps Ur Squamous Epith Cells Ur Transition Epith Cell Amorphous Sediment Urine Bacteria Urine Mucus Micro UA Comment Urine Culture Comments Urine Opiates Screen Ur Barbiturates Screen Ur Amphetamines Screen U Benzodiazepines Scrn Urine Cocaine Screen U Cannabinoids Screen Serum Alcohol - Imaging Impressions Chest X-Ray 09/19/17 10:07 CONCLUSION: 1. Hyperinflated lungs characteristic of COPD. 2. No evidence of acute cardiopulmonary process. 3. Stable chest Head CT 09/19/17 11:32 CONCLUSION: 1. No focal or acute intracranial hemorrhage. 2. Diffuse bilateral cortical atrophy and prominent bilateral chronic white matter changes. 3. Visualized portion of the right maxillary sinus is opacified. Assessment and Plan - Assessment (1) Metabolic encephalopathy Code(s): G93.41 - Metabolic encephalopathy Status: Acute Plan: Etiology unclear, may be related to urinary tract infection, cultures pending Continue empiric levofloxacin Improved first brother at bedside yesterday (2) Dementia Code(s): F03.90 - Unspecified dementia without behavioral disturbance Status: Acute Plan: Continue home medication (3) BPH (benign prostatic hyperplasia) Code(s): N40.0 - Benign prostatic hyperplasia without lower urinary tract symptoms Status: Acute Plan: cont flomax (4) HTN (hypertension) Code(s): I10 - Essential (primary) hypertension Status: Acute Plan: Continue enalapril, add Norvasc (5) Malnutrition Code(s): E46 - Unspecified protein-calorie malnutrition Status: Acute Plan: Moderate malnutrition requiring supplementation. Dietitian consult appreciated - Plan Discharge Planning: Pending palliative consult, may be candidate for hospice at home
[2017-09-20] MEDS: Heparin - SQ 10,000 UNITS/ML Vial SQ SCH ×2 (10:46→20:35)
[2017-09-20] MEDS: Senna/Docusate Sodium 8.6/50 MG Tablet PO SCH ×2 (10:46→20:36)
[2017-09-20] MEDS: Mirtazapine 15 MG Tablet PO SCH (10:47)
[2017-09-20] MEDS: amLODIPine 5 MG Tablet PO SCH (16:00)
--- NOTE | 2017-09-20 16:58 | P.CONPAL ---
Consult Service: Palliative Care Requesting Physician: Corinne Tripp Reason for Consult: a. To assist with evaluation and management of symptoms including:AMS, anorexia b. To assist medical decision maker(s) with: better understanding of current medical conditions; weighing benefits/burdens of medical treatment options; making medical treatment decisions. Primary Care Provider: Steffen Sheth MD History of Present Illness History of Present Illness: This is a 71 y/o male with a history of dementia, BPH and hypertension brought to the ED by his late 's uncle for worsening altered mental status and generalized weakness. He was not speaking and becoming more lethargic than his baseline. Family states that his appetite has been declining for the last 2 years, refusing to eat, walk around or engage in his daily activities. He was prescribed mirtazapine 7.5 mg 3 days ago by his PMD which seemed to exacerbate his baseline lethargy and unresponsiveness. On admission his chest x-ray showed hyperinflated lungs, characteristic of COPD with no evidence of an acute cardiopulmonary process. Head CT showed no focal or acute intracranial hemorrhage. Diffuse bilateral cortical atrophy and prominent bilateral chronic white matter changes were seen with right maxillary sinus opacification. Presenting laboratory studies showed WBC 3.8, hemoglobin 14.8, hematocrit 43.0, platelets 171, PT 11.6, INR 1.1, APTT 24.9, sodium 144, potassium 4.0, carbon dioxide 32.2, anion gap 6, BUN 15, creatinine 1.20, total bilirubin 1.8, normal transaminase, ammonia 12, troponin less than 0.02, TSH 2.3. He was evaluated by speech therapy and was found to be unresponsive to oral motor directives, not lethargic with a jovial affect. He was assessed with the [facility] mental status examination and scored 2/30, indicating profound cognitive communication deficits. He was able to pass the swallow evaluation and diet of regular food with thin liquids has been recommended by speech therapy. Patient was evaluated by physical therapy and found to have garbled speech with little self-directed activity and following of commands. Range of motion was within functional limits with 3/5 manual muscle strength, fair sitting balance, poor standing balance with a final recommendation of PT at rehab if possible. . Function/Cognitive Trajectory: Family states that he has become progressively more lethargic, lying in bed most of the day. They state that this behavior is been progressively worsening since he retired with a significant increase after his . He lives with his late 's uncle who helps provide him care and has a brother, Sean , who lives nearby and assists with his care. Sean is also his power of research attorney and healthcare surrogate. His sister, and, is his alternate healthcare surrogate, however is very disabled and unable to participate per Sean. Family is interested in obtaining more help to provide care for José Manuel as he has been wandering off and is now developing incontinence, and speaking very little. His FAST score is at 7a. Family is now considering placement as they are unable to find full-time caregivers. Palliative care has been consulted to assist family in determining goals of care. . Review of Systems Patient is minimally verbal and unable to provide their own ROS. 10 part ROS taken as best as possible from medical record and available family. Constitutional: Reports fatigue, Reports weakness, Reports weight loss Gastrointestinal: Reports incontinent of stools Genitourinary: Reports urinary incontinence Musculoskeletal: Reports muscle weakness Neurologic: Reports unsteadiness, Reports weakness Psychiatric: Reports change in appetite, Reports irritability PMFSH - History History Provided By: Family Member - Medical History Medical History: Medical History (Last Reviewed 09/20/17 @ 09:57 by Georgina Sevilla) BPH (benign prostatic hyperplasia) CVA (cerebral vascular accident) Dementia High cholesterol Hypertension - Surgical History Surgical History: Surgical History (Last Reviewed 09/20/17 @ 09:57 by Georgina Sevilla) Hx of tonsillectomy - Tobacco History Second Hand Smoke Exposure: No Tobacco Use In Past 30 Days: No Smoking Status: Never smoker - Alcohol History How Often Do You Have a Drink Containing Alcohol: Never - Substance Use History Substance History: No History of Abuse - Travel History Recent Travel in the [place] Within the Last 8 Weeks: No Recent Travel Out of the Country Within the Last 8 Weeks: No - Immunization History Tetanus Immunization: Unsure Hx Influenza Vaccine This Season: Yes Medications and Allergies Active Medications: Active Medications Acetaminophen (Tylenol) 650 mg PO Q4H PRN PRN Reason: Temp > 100.4 Al Hydroxide/Mg Hydroxide (Milk Of Magnesia Liq) 30 ml PO Q12H PRN PRN Reason: Mild Constipation Amlodipine Besylate (Norvasc) 5 mg PO DAILY [facility] Last Admin: 09/20/17 16:00 Dose: 5 mg Aspirin (Ecotrin) 81 mg PO DAILY [facility] Last Admin: 09/20/17 10:47 Dose: 81 mg Bisacodyl (Dulcolax Supp) 10 mg RECTAL DAILY PRN PRN Reason: SEVERE CONSITIPATION Enalapril Maleate (Vasotec) 10 mg PO DAILY [facility] Last Admin: 09/20/17 10:47 Dose: 10 mg Enalaprilat (Vasotec Inj) 1.25 mg IV.PUSH Q8H PRN PRN Reason: BLOOD PRESSURE MANAGEMENT Last Admin: 09/20/17 00:36 Dose: 1.25 mg Heparin Sodium (Porcine) (Heparin Inj) 5,000 units SQ Q12HR [facility] Last Admin: 09/20/17 10:46 Dose: 5,000 units Levofloxacin/Dextrose (Levaquin 750 Mg Premix Inj) 150 mls @ 100 mls/hr IV.SIG Q24H [facility] Last Admin: 09/20/17 16:01 Dose: 100 mls/hr Lactulose (Lactulose Liq) 30 ml PO DAILY PRN PRN Reason: SEVERE CONSITIPATION Mirtazapine (Remeron) 7.5 mg PO DAILY [facility] Last Admin: 09/20/17 10:47 Dose: 7.5 mg Miscellaneous (Pill Splitter) 1 each OTHER UNSCH PRN PRN Reason: SEE LABEL COMMENTS Ondansetron HCl (Zofran Inj) 4 mg IV.PUSH Q6H PRN PRN Reason: NAUSEA OR VOMITING Senna/Docusate Sodium (Viry-Colace) 1 tab PO BID [facility] Last Admin: 09/20/17 10:46 Dose: 1 tab Sennosides (Senokot) 17.2 mg PO Q12H PRN PRN Reason: Moderate Constipation Sodium Chloride (Ns Flush) 2 ml IV.FLUSH BID [facility] Last Admin: 09/20/17 10:47 Dose: Not Given Sodium Chloride (Ns Flush) 2 ml IV.FLUSH PRN PRN PRN Reason: FLUSH AFTER USING IV ACCESS Last Admin: 09/20/17 10:46 Dose: 2 ml Tamsulosin HCl (Flomax) 0.4 mg PO DAILY [facility] Last Admin: 09/20/17 10:46 Dose: 0.4 mg Temazepam (Restoril) 15 mg PO HS PRN PRN Reason: INSOMNIA Last Admin: 09/19/17 19:49 Dose: 15 mg Allergies Allergy/AdvReac Type Severity Reaction Status Date / Time penicillin G Allergy Mild RASH Verified 09/19/17 15:59 Home Medications Medication Instructions Recorded Confirmed Type aspirin [Aspir-81] 81 mg PO DAILY 09/19/17 09/19/17 History enalapril maleate 10 mg PO DAILY 09/19/17 09/19/17 History lovastatin 1 tab PO DAILY 09/19/17 09/19/17 History memantine-donepezil [Namzaric] 1 tab PO DAILY 09/19/17 09/19/17 History mirtazapine 7.5 mg PO DAILY 09/19/17 09/19/17 History tamsulosin 0.4 mg PO DAILY 09/19/17 09/19/17 History Advance Directives Living Will: Unknown Healthcare Surrogate: Yes (Copy on chart) Health Care Surrogate Name and Number: Sean Felix, Power of Cnp: Yes Power of Cnp Name: Sean Felix Power of Cnp Relationship to Patient: Family (Brother) Documented care wishes: Brother, Sean, and believes that José Manuel has a living will but it is not available at this time. Today's verbally stated goals: Patient unable to state goals due to minimal verbal ability. Family/friends goals: Sean Felix, the [facility] and POA, has determined that the patient should be made a DO NOT RESUSCITATE status due to his progressive and terminal disease of dementia. . Ethical and Legal Issues: None noted. . Physical Exam Vital Signs: Vital Signs - 24 hr 09/19/17 17:24 09/19/17 20:00 09/20/17 00:00 Temperature 96.9 F L 96.8 F L 97.3 F L Pulse Rate 57 L 57 L 53 L Respiratory Rate 16 20 18 Blood Pressure 174/75 H 153/69 H 183/74 H Pulse Oximetry 100 94 L 98 09/20/17 04:00 09/20/17 08:00 09/20/17 12:00 Temperature 97.6 F 97.2 F L Pulse Rate 61 51 L 62 Respiratory Rate 16 17 Blood Pressure 159/74 H 157/75 H 162/84 H Pulse Oximetry 18 L 96 95 09/20/17 16:00 Temperature 97.8 F Pulse Rate 72 Respiratory Rate 16 Blood Pressure 178/80 H Pulse Oximetry 95 I&O: Intake & Output 09/18/17 09/19/17 09/20/17 09/21/17 06:59 06:59 06:59 06:59 Intake Total 210 / 210 Balance 210 / 210 Weight 101 lb 3.075 oz Physical Exam: CONSTITUTIONAL/GENERAL: This is a very thin patient, lying in bed in no apparent distress. TUBES/LINES/DRAINS: PIV SKIN: No jaundice, rashes, or lesions. Minimal ecchymoses on upper extremities. No wounds seen anteriorly. Skin temperature appropriate. Not diaphoretic. HEAD: Atraumatic. Normocephalic. EYES: Pupils equal and round and reactive. Extraocular motions intact. No scleral icterus. No injection or drainage. Fundi not examined. ENT: Nose without bleeding or purulent drainage. Throat without visible erythema , exudates, masses, or lesions. NECK: Trachea midline. Supple, nontender. No palpable thyroid enlargement or nodularity. CARDIOVASCULAR: Regular rate and rhythm without murmurs, gallops, or rubs. No JVD. Peripheral pulses symmetric. RESPIRATORY/CHEST: Symmetric, unlabored respirations. Clear to auscultation. Breath sounds equal bilaterally. No wheezes, rales, or rhonchi. GASTROINTESTINAL: Abdomen soft, non-tender, nondistended. No hepato-splenomegaly , or palpable masses. No guarding. Bowel sounds present. GENITOURINARY: Without palpable bladder distension. Betancur catheter in place. MUSCULOSKELETAL: Extremities without clubbing, cyanosis, or edema. No joint tenderness or effusion noted. No calf tenderness. No mottling or clubbing. LYMPHATICS: No palpable cervical or supraclavicular adenopathy. NEUROLOGICAL: Lethargic, nonverbal. PSYCHIATRIC: Agitated overnight, currently lethargic. . Diagnostic Tests Laboratory: Laboratory Results - last 72 hr 09/19/17 09/19/17 09/19/17 10:10 10:10 10:10 CBC w Diff Auto diff final WBC 3.8 L RBC 4.74 Hgb 14.8 Hct 43.0 MCV 90.7 MCH 31.3 MCHC 34.5 RDW 13.5 Plt Count 171 MPV 7.5 Neut % (Auto) 64.1 Lymph % (Auto) 23.5 [place] % (Auto) 7.6 Eos % (Auto) 3.8 Baso % (Auto) 1.0 Neut # (Auto) 2.5 Lymph # (Auto) 0.9 L [place] # (Auto) 0.3 Eos # (Auto) 0.1 Baso # (Auto) 0.0 WBC Differential . Differential Comment . PT 11.6 INR 1.1 APTT 24.9 Sodium 144 Potassium 4.0 Chloride 106 Carbon Dioxide 32.2 H Anion Gap 6 BUN 15 Creatinine 1.20 Estimated GFR 60 L Random Glucose 111 H Calcium 9.0 Total Bilirubin 1.8 H AST 18 ALT 25 Alkaline Phosphatase 48 Ammonia Troponin I Less than 0.02 L Total Protein 7.0 Albumin 3.9 TSH 2.300 Urine Color Urine Clarity Urine pH Ur Specific [place] Urine Protein Urine Glucose (UA) Urine Ketones Urine Occult Blood Urine Nitrate Urine Bilirubin Urine Urobilinogen Ur Leukocyte Esterase Urine RBC Urine WBC Urine WBC Clumps Ur Squamous Epith Cells Ur Transition Epith Cell Amorphous Sediment Urine Bacteria Urine Mucus Micro UA Comment Urine Culture Comments Urine Opiates Screen Ur Barbiturates Screen Ur Amphetamines Screen U Benzodiazepines Scrn Urine Cocaine Screen U Cannabinoids Screen Serum Alcohol Less than 3 09/19/17 09/19/17 09/19/17 10:10 12:00 12:00 CBC w Diff WBC RBC Hgb Hct MCV MCH MCHC RDW Plt Count MPV Neut % (Auto) Lymph % (Auto) [place] % (Auto) Eos % (Auto) Baso % (Auto) Neut # (Auto) Lymph # (Auto) [place] # (Auto) Eos # (Auto) Baso # (Auto) WBC Differential Differential Comment PT INR APTT Sodium Potassium Chloride Carbon Dioxide Anion Gap BUN Creatinine Estimated GFR Random Glucose Calcium Total Bilirubin AST ALT Alkaline Phosphatase Ammonia 12 Troponin I Total Protein Albumin TSH Urine Color Yellow Urine Clarity Clear Urine pH 7.0 Ur Specific [place] 1.015 Urine Protein Trace Urine Glucose (UA) Negative Urine Ketones Negative Urine Occult Blood Negative Urine Nitrate Negative Urine Bilirubin Negative Urine Urobilinogen 1.0 Ur Leukocyte Esterase Negative Urine RBC 0-3 Urine WBC 9-20 H Urine WBC Clumps Occasional H Ur Squamous Epith Cells 0-5 Ur Transition Epith Cell 1-5 H Amorphous Sediment Occ H Urine Bacteria Occasional H Urine Mucus Few H Micro UA Comment Culture indicated Urine Culture Comments Culture indicated Urine Opiates Screen Neg Ur Barbiturates Screen Neg Ur Amphetamines Screen Neg U Benzodiazepines Scrn Neg Urine Cocaine Screen Neg U Cannabinoids Screen Neg Serum Alcohol 09/20/17 09/20/17 04:45 04:55 CBC w Diff Auto diff final WBC 4.5 RBC 4.74 Hgb 15.0 Hct 43.6 MCV 92.0 MCH 31.6 MCHC 34.4 RDW 13.0 Plt Count 159 MPV 8.7 Neut % (Auto) 59.2 Lymph % (Auto) 26.5 [place] % (Auto) 8.5 H Eos % (Auto) 4.8 H Baso % (Auto) 1.0 Neut # (Auto) 2.7 Lymph # (Auto) 1.2 [place] # (Auto) 0.4 Eos # (Auto) 0.2 Baso # (Auto) 0.0 WBC Differential . Differential Comment . PT INR APTT Sodium 144 Potassium 3.9 Chloride 106 Carbon Dioxide 31.4 Anion Gap 7 BUN 16 Creatinine 0.98 Estimated GFR 75 L Random Glucose 97 Calcium 9.3 Total Bilirubin AST ALT Alkaline Phosphatase Ammonia Troponin I Total Protein Albumin TSH Urine Color Urine Clarity Urine pH Ur Specific [place] Urine Protein Urine Glucose (UA) Urine Ketones Urine Occult Blood Urine Nitrate Urine Bilirubin Urine Urobilinogen Ur Leukocyte Esterase Urine RBC Urine WBC Urine WBC Clumps Ur Squamous Epith Cells Ur Transition Epith Cell Amorphous Sediment Urine Bacteria Urine Mucus Micro UA Comment Urine Culture Comments Urine Opiates Screen Ur Barbiturates Screen Ur Amphetamines Screen U Benzodiazepines Scrn Urine Cocaine Screen U Cannabinoids Screen Serum Alcohol Result Diagrams: 09/20/17 04:45 09/20/17 04:55 Microbiology: Microbiology 09/19/17 12:00 Urine Culture - Preliminary Clean Catch Urine No growth in 24 hours Imaging: Chest X-Ray 09/19/17 10:07 CONCLUSION: 1. Hyperinflated lungs characteristic of COPD. 2. No evidence of acute cardiopulmonary process. 3. Stable chest Head CT 09/19/17 11:32 CONCLUSION: 1. No focal or acute intracranial hemorrhage. 2. Diffuse bilateral cortical atrophy and prominent bilateral chronic white matter changes. 3. Visualized portion of the right maxillary sinus is opacified. Patient/Family Conference Present at Family Conference: Patient's brother, Sean Felix, met with myself and Dr. Corinne Tripp to review plans for discharge. Reviewed goals of care and verified that he wants his brother to be a DO NOT RESUSCITATE status. Reviewed palliative care purpose and focus as well as below listed items. Reviewed discharge options to include private care at home, [facility] placement, SNF placement or any of those options with hospice care. We did review possibility of rehab placement as a bridge to long-term placement but he is aware that his brother is not able to engage in aggressive rehabilitative therapy secondary to weakness, lethargy and progressive dementia. While he would like to have his brother stay at home, he recognizes that this is becoming an untenable option. The patient's brother was open to discussing the possibility of hospice and would like an informational consultation to establish contact as he is aware that he will likely need more support in the coming days. . Family Conference Location: Consult Room Issues Discussed: * Palliative care role, purpose, approach * Additional medical, psychosocial, and spiritual history * Patients general health, functional status, and cognitive changes in the months leading up to the current hospitalization * Patient/family understanding of the current medical problems * Patient/family understanding of prognosis * Patients goals of care as best understood from advance directives and/or conversations and/or values * Current medical treatment options and benefits/burdens of those options * Likely scenarios comparing ongoing aggressive care with a transition to comfort measures only * Questions answered to the best of my ability * Palliative care contact information provided Assessment and Plan Pertinent Non-Medical Issues: Psychosocial: Patient was born in [place] and had difficulty in school secondary to a learning disability making it difficult for him to read and write. They moved to [place] many years ago. 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 He was however his 2 years ago. He had no children. Spiritual: He was raised Rastafarian. Legal: His brother, Sean, is his POA and [facility]. Ethical issues impacting care: None noted. . Important Contacts: Brother: Sean Felix , cell . Prognosis: His prognosis is guarded. His admitting symptoms appear to be related to his progressive dementia. His urine culture is negative, labs are normal and imaging shows no pathology to explain his decrease in cognition and weakness. He is currently at an FAST score of 7a and, if his disease follows a normal course, he will continue to decline over time. He is at risk for recurrent complications and rehospitalizations. . Code Status: No Code DNR Plan: PLAN: Legal decision maker: Patient is not capacitated for decision-making as he is not oriented and shows no interest or insight into his healthcare. He has previously designated his brother, Sean, as his healthcare surrogate and power of research attorney. Goals: Comfort oriented. CODE STATUS: DO NOT RESUSCITATE SYMPTOMS: * Altered mental status: Patient has a fluctuating mentation where he will speak occasionally, not consistently, not to command. Urinalysis was negative, chest x-ray was negative and laboratory values were generally within normal limits. No infectious or other pathology has been found to explain his worsening mental status making it likely that this is progressive dementia. He also developed agitation overnight requiring a small dose of Xanax in addition to the mirtazapine to control his symptoms. * Anorexia: He has been declining in appetite and continues to lose weight. His body mass index is 15. He has been eating minimally in the hospital and family states that he frequently did not eat at home. He will occasionally eat a meal but that is becoming less frequent. Mirtazapine was initiated by his primary care provider and that has been continued in the hospital. Per the RN, he drank 1 bottle of Ensure all day. SUMMARY This is a 71 year old male with progressive dementia who is showing evidence of decline in cognition, nutrition and function. He has now developed incontinence , both fecal and urine, in addition to declining appetite and interaction with family. As his FAST score is now 7a, he would likely be hospice appropriate when family goals are consistent. Will request a hospice information consultation be set up with the family to establish contact as they will likely benefit from the support as his dementia progresses. Palliative care will continue to follow the patient during hospital course as condition evolves, to assist patient/decision-maker with understanding of their medical conditions, weighing benefits/burdens of treatment options, for clarification of goals of treatment. Additionally will assist with any symptoms of palliative concern. . Appreciation Thank you for the opportunity to participate in the care of José Manuel Felix. Attestation Attestation: To help prompt me to consider important information that might be impacting today's encounter and assessment, information from prior notes written by myself or my colleagues may have been "brought forward" into today's note. My signature on this note, however, is an attestation that I personally performed the exam, history, and/or decision-making noted today, and, unless otherwise indicated, the interactions with patient, family, and staff as well as the review of records all occurred today. I also attest that the listed assessment and stated plan reflect my best clinical judgment today based on the combination of historical information, prior notes, and today's exam/ interactions. When time spent is documented, it refers only to time spent today by the signer, or if indicated, combined time spent today by collaborating physician/nurse practitioner. .
[2017-09-20] MEDS: Temazepam 15 MG Capsule PO PRN (23:30)
[2017-09-21] MEDS: Mirtazapine 15 MG Tablet PO SCH (08:14)
[2017-09-21] MEDS: amLODIPine 5 MG Tablet PO SCH (08:14)
[2017-09-21] MEDS: Heparin - SQ 10,000 UNITS/ML Vial SQ SCH ×3 (08:14→21:46)
[2017-09-21] MEDS: Senna/Docusate Sodium 8.6/50 MG Tablet PO SCH ×2 (08:14→21:45)
--- NOTE | 2017-09-21 09:23 | P.PNIM ---
Subjective Interval history: Patient seen today in follow-up for progressive dementia. No further events in the hospital. Care plan discussed with brother and palliative care yesterday. Physical Exam Vital signs: Vital Signs 09/20/17 12:00 09/20/17 16:00 09/20/17 20:00 Temperature 97.2 F L 97.8 F 97.9 F Pulse Rate 62 72 82 Respiratory Rate 17 16 20 Blood Pressure 162/84 H 178/80 H 121/70 Pulse Oximetry 95 95 96 09/21/17 00:00 Temperature 97.6 F Pulse Rate 63 Respiratory Rate 20 Blood Pressure 130/70 Pulse Oximetry 99 Intake & Output 09/20/17 09/21/17 09/21/17 18:59 06:59 18:59 Intake Total 720 / 720 210 / 210 Balance 720 / 720 210 / 210 Weight 47 kg Intake: IV 150 / 150 Levaquin 750 mg Premix Inj 150 150 / 150 ML @ 100 mls/hr IV.SIG Q24H [facility] Rx#:[id number] Oral 720 / 720 60 / 60 Other: # Voids 2 # Urine Diapers 3 # Bowel Movements 0 Narrative: GENERAL: Cachectic patient calm resting and without complaints SKIN: Warm and dry. No rashes or ecchymotic injuries EYES: Pupils equal and round. No scleral icterus. No injection or drainage. ENT: External ear exam normal. No acute nasal bleeding or discharge. Mucous membranes pink and moist. CARDIOVASCULAR: Regular rate and rhythm. No murmurs gallops or rubs appreciated RESPIRATORY: Good air flow and effort without accessory muscle use. Clear to auscultation. Breath sounds equal bilaterally. GASTROINTESTINAL: Abdomen soft, non-tender, nondistended. Hepatic and splenic margins not palpable. MUSCULOSKELETAL: Extremities without clubbing, cyanosis, or edema. No obvious deformities. NEUROLOGICAL: Awake and alert. No obvious cranial nerve deficits. Motor grossly within normal limits. Five out of 5 muscle strength in the arms and legs. Normal speech. Results - Labs CBC & Chem 7: 09/20/17 04:45 09/20/17 04:55 Microbiology 09/19/17 12:00 Clean Catch Urine Urine Culture - Preliminary No growth in 24 hours Assessment and Plan - Assessment (1) Metabolic encephalopathy Code(s): G93.41 - Metabolic encephalopathy Status: Acute Plan: Cultures negative, Levaquin discontinued, continue with supportive care for progressive dementia (2) Dementia Code(s): F03.90 - Unspecified dementia without behavioral disturbance Status: Acute Plan: Continue home medication (3) BPH (benign prostatic hyperplasia) Code(s): N40.0 - Benign prostatic hyperplasia without lower urinary tract symptoms Status: Acute Plan: cont flomax (4) HTN (hypertension) Code(s): I10 - Essential (primary) hypertension Status: Acute Plan: Continue enalapril, add Norvasc (5) Malnutrition Code(s): E46 - Unspecified protein-calorie malnutrition Status: Acute Plan: Moderate malnutrition requiring supplementation. Dietitian consult appreciated - Plan Discharge Planning: Hospice consult pending, palliative consult appreciated
[2017-09-21] MEDS: Temazepam 15 MG Capsule PO PRN (23:50)
[2017-09-22] MEDS: Heparin - SQ 10,000 UNITS/ML Vial SQ SCH ×3 (05:56→23:09)
[2017-09-22] MEDS: Senna/Docusate Sodium 8.6/50 MG Tablet PO SCH ×2 (08:05→21:33)
[2017-09-22] MEDS: Mirtazapine 15 MG Tablet PO SCH (08:05)
[2017-09-22] MEDS: amLODIPine 5 MG Tablet PO SCH (08:05)
--- NOTE | 2017-09-22 08:23 | P.PNIM ---
Subjective Interval history: No events overnight. Patient comfortable in bed without complaints. Eating breakfast. Care plan discussed with brother and hospice team yesterday. Patient will benefit from rehab attempts. Physical Exam Vital signs: Vital Signs 09/21/17 11:37 09/21/17 16:00 09/21/17 20:00 Temperature 97.6 F 97.8 F 95.6 F L Pulse Rate 72 62 69 Respiratory Rate 20 20 18 Blood Pressure 149/67 H 114/59 L 120/63 Pulse Oximetry 97 99 96 09/22/17 00:00 09/22/17 07:46 Temperature 97.7 F 97.2 F L Pulse Rate 67 63 Respiratory Rate 18 20 Blood Pressure 138/70 164/69 H Pulse Oximetry 97 97 Intake & Output 09/21/17 09/22/17 09/22/17 18:59 06:59 18:59 Intake Total 458 / 458 240 / 240 Balance 458 / 458 240 / 240 Weight 47.6 kg Intake: Oral 458 / 458 240 / 240 Other: # Voids 6 2 # Bowel Movements 0 Narrative: GENERAL: Cachectic patient calm resting and without complaints SKIN: Warm and dry. No rashes or ecchymotic injuries EYES: Pupils equal and round. No scleral icterus. No injection or drainage. ENT: External ear exam normal. No acute nasal bleeding or discharge. Mucous membranes pink and moist. CARDIOVASCULAR: Regular rate and rhythm. No murmurs gallops or rubs appreciated RESPIRATORY: Good air flow and effort without accessory muscle use. Clear to auscultation. Breath sounds equal bilaterally. GASTROINTESTINAL: Abdomen soft, non-tender, nondistended. Hepatic and splenic margins not palpable. MUSCULOSKELETAL: Extremities without clubbing, cyanosis, or edema. No obvious deformities. NEUROLOGICAL: Awake and alert. No obvious cranial nerve deficits. Motor grossly within normal limits. Five out of 5 muscle strength in the arms and legs. Normal speech. Results - Labs CBC & Chem 7: 09/20/17 04:45 09/20/17 04:55 Microbiology 09/19/17 12:00 Clean Catch Urine Urine Culture - Final No growth in 48 hours Assessment and Plan - Assessment (1) Metabolic encephalopathy Code(s): G93.41 - Metabolic encephalopathy Status: Resolved Plan: Cultures negative, Levaquin discontinued, continue with supportive care for progressive dementia (2) Dementia Code(s): F03.90 - Unspecified dementia without behavioral disturbance Status: Acute Plan: Stable and at baseline (3) BPH (benign prostatic hyperplasia) Code(s): N40.0 - Benign prostatic hyperplasia without lower urinary tract symptoms Status: Acute Plan: cont flomax (4) HTN (hypertension) Code(s): I10 - Essential (primary) hypertension Status: Acute Plan: Continue enalapril, and Norvasc (5) Malnutrition Code(s): E46 - Unspecified protein-calorie malnutrition Status: Acute Plan: Moderate malnutrition requiring supplementation. Dietitian consult appreciated - Plan Discharge Planning: Discharge to long term facility when arrangements made
[2017-09-23] MEDS: Heparin - SQ 10,000 UNITS/ML Vial SQ SCH ×3 (05:28→22:27)
[2017-09-23] MEDS: amLODIPine 5 MG Tablet PO SCH (08:52)
[2017-09-23] MEDS: Senna/Docusate Sodium 8.6/50 MG Tablet PO SCH ×2 (08:52→20:59)
[2017-09-23] MEDS: Mirtazapine 15 MG Tablet PO SCH (08:52)
--- NOTE | 2017-09-23 10:42 | P.PNIM ---
Subjective Interval history: Patient seen today in follow-up for progressive dementia. No new events overnight resting comfortably. Awaiting discharge assistance to senior living facility Physical Exam Vital signs: Vital Signs 09/22/17 11:14 09/22/17 16:04 09/22/17 20:00 Temperature 97.6 F 97.5 F L 98.2 F Pulse Rate 65 68 56 L Respiratory Rate 20 20 16 Blood Pressure 154/66 H 148/68 H 131/61 Pulse Oximetry 97 97 94 L 09/23/17 00:00 09/23/17 08:00 Temperature 98.3 F 97.9 F Pulse Rate 51 L 68 Respiratory Rate 16 18 Blood Pressure 137/79 132/83 Pulse Oximetry 94 L 98 Intake & Output 09/22/17 09/23/17 09/23/17 18:59 06:59 18:59 Intake Total 480 / 480 Balance 480 / 480 Weight 47.6 kg Intake: Oral 480 / 480 Other: # Voids 3 2 Date of Last Bowel Movement 09/22/17 09/22/17 09/23/17 # Bowel Movements 2 Narrative: GENERAL: Cachectic patient calm resting and without complaints SKIN: Warm and dry. No rashes or ecchymotic injuries EYES: Pupils equal and round. No scleral icterus. No injection or drainage. ENT: External ear exam normal. No acute nasal bleeding or discharge. Mucous membranes pink and moist. CARDIOVASCULAR: Regular rate and rhythm. No murmurs gallops or rubs appreciated RESPIRATORY: Good air flow and effort without accessory muscle use. Clear to auscultation. Breath sounds equal bilaterally. GASTROINTESTINAL: Abdomen soft, non-tender, nondistended. Hepatic and splenic margins not palpable. MUSCULOSKELETAL: Extremities without clubbing, cyanosis, or edema. No obvious deformities. NEUROLOGICAL: Awake and alert. No obvious cranial nerve deficits. Motor grossly within normal limits. Five out of 5 muscle strength in the arms and legs. Normal speech. Results - Labs CBC & Chem 7: 09/20/17 04:45 09/20/17 04:55 Assessment and Plan - Assessment (1) Dementia Code(s): F03.90 - Unspecified dementia without behavioral disturbance Status: Acute Plan: Stable and at baseline (2) BPH (benign prostatic hyperplasia) Code(s): N40.0 - Benign prostatic hyperplasia without lower urinary tract symptoms Status: Acute Plan: cont flomax (3) HTN (hypertension) Code(s): I10 - Essential (primary) hypertension Status: Acute Plan: Controlled on current enalapril and amlodipine (4) Malnutrition Code(s): E46 - Unspecified protein-calorie malnutrition Status: Acute Plan: Moderate malnutrition requiring supplementation. Dietitian consult appreciated - Plan Discharge Planning: Discharge to senior living facility when arrangements made
[2017-09-23] MEDS: Temazepam 15 MG Capsule PO PRN (22:34)
[2017-09-24] MEDS: Heparin - SQ 10,000 UNITS/ML Vial SQ SCH (06:20)
[2017-09-24] MEDS: Mirtazapine 15 MG Tablet PO SCH (08:26)
[2017-09-24] MEDS: amLODIPine 5 MG Tablet PO SCH (08:27)
[2017-09-24] MEDS: Senna/Docusate Sodium 8.6/50 MG Tablet PO SCH (08:28)
--- NOTE | 2017-09-24 09:12 | P.PNIM ---
Subjective Interval history: Patient seen today in follow-up for dementia. Awaiting insurance authorization. No issues overnight. Discussed with Julio C GALINDO Physical Exam Vital signs: Vital Signs 09/23/17 12:00 09/23/17 12:47 09/23/17 15:40 Temperature 96.6 F L 97.1 F L Pulse Rate 62 70 Respiratory Rate 18 18 Blood Pressure 166/70 H 154/73 H 121/61 Pulse Oximetry 98 98 09/23/17 22:19 09/24/17 01:42 09/24/17 08:02 Temperature 96.8 F L 96.9 F L 97.3 F L Pulse Rate 73 80 77 Respiratory Rate 18 18 18 Blood Pressure 143/65 H 133/72 179/77 H Pulse Oximetry 98 97 77 L Intake & Output 09/23/17 09/24/17 09/24/17 18:59 06:59 18:59 Intake Total 720 / 720 240 / 240 Output Total 400 / 400 Balance 320 / 320 240 / 240 Weight 47.6 kg Intake: Oral 720 / 720 240 / 240 Output: Urine 400 / 400 Other: # Voids 3 # Incontinent Voids 3 Date of Last Bowel Movement 09/23/17 # Bowel Movements 2 4 Narrative: GENERAL: Cachectic patient calm resting and without complaints SKIN: Warm and dry. No rashes or ecchymotic injuries EYES: Pupils equal and round. No scleral icterus. No injection or drainage. ENT: External ear exam normal. No acute nasal bleeding or discharge. Mucous membranes pink and moist. CARDIOVASCULAR: Regular rate and rhythm. No murmurs gallops or rubs appreciated RESPIRATORY: Good air flow and effort without accessory muscle use. Clear to auscultation. Breath sounds equal bilaterally. GASTROINTESTINAL: Abdomen soft, non-tender, nondistended. Hepatic and splenic margins not palpable. MUSCULOSKELETAL: Extremities without clubbing, cyanosis, or edema. No obvious deformities. NEUROLOGICAL: Awake and alert. No obvious cranial nerve deficits. Motor grossly within normal limits. Five out of 5 muscle strength in the arms and legs. Normal speech. Results - Labs CBC & Chem 7: 09/20/17 04:45 09/20/17 04:55 Assessment and Plan - Assessment (1) Dementia Code(s): F03.90 - Unspecified dementia without behavioral disturbance Status: Acute Plan: Stable and at baseline (2) BPH (benign prostatic hyperplasia) Code(s): N40.0 - Benign prostatic hyperplasia without lower urinary tract symptoms Status: Acute Plan: cont flomax (3) HTN (hypertension) Code(s): I10 - Essential (primary) hypertension Status: Acute Plan: Controlled on current enalapril and amlodipine (4) Malnutrition Code(s): E46 - Unspecified protein-calorie malnutrition Status: Acute Plan: Moderate malnutrition requiring supplementation. Dietitian consult appreciated - Plan Discharge Planning: [facility] when arrangements made
== END 2017-09-24 15:00 ==
LOC: PH3 09:32 → PHEDA 09:32 → PHED 09:32 → PH3 14:13
PROVIDERS: ADMIT Hospitalist; ATTEND Hospitalist